=== PATIENT | male | born 1945 | race Caucasian/White ===

== ENCOUNTER 2021-12-08 13:53 | Inpatient (IN) | payer MEDICARE, OTHER ==
[~2021-12-08] VITALS: Ht 177.8 cm; Wt 59.0 kg
[2021-12-08 14:56] LABS: HEMOGLOBIN 7.2 gm/dl (14.0-17.5); RED BLOOD COUNT 2.48 M/UL (4.20-5.50)
[2021-12-08] MEDS ORDERED: PRAVASTATIN SOD40 MG PO (20:08)
[2021-12-08] MEDS ORDERED: DESYREL 50 MG T50 MG PO (20:09)
[2021-12-08] MEDS ORDERED: GLUCOTROL5 MG PO (20:10)
[2021-12-08] MEDS ORDERED: FLOMAX 0.4 MG0.4 MG PO (20:10)
[2021-12-08] MEDS ORDERED: AMLODIPINE BESYL5 MG PO (20:11)
[2021-12-08] MEDS ORDERED: NITROGLYCERIN0.4 MG SL (20:12)
[2021-12-09 03:13] LABS: HEMOGLOBIN 7.5 gm/dl (14.0-17.5); RED BLOOD COUNT 2.66 M/UL (4.20-5.50)
[2021-12-09 03:39] LABS: WHITE BLOOD COUNT 167.6 K/UL (4.5-11.0)
[2021-12-09] MEDS ORDERED: HYDROCODON-ACE1 EAC6 PO (20:11)
[2021-12-10 04:31] LABS: HEMOGLOBIN 8.4 gm/dl (14.0-17.5)
[2021-12-10 04:36] LABS: RED BLOOD COUNT 2.94 M/UL (4.20-5.50); WHITE BLOOD COUNT 140.2 K/UL (4.5-11.0)
[2021-12-11 03:26] LABS: HEMOGLOBIN 7.8 gm/dl (14.0-17.5)
[2021-12-11 03:40] LABS: RED BLOOD COUNT 2.6 M/UL (4.20-5.50); WHITE BLOOD COUNT 115.4 K/UL (4.5-11.0)
[2021-12-12 03:24] LABS: HEMOGLOBIN 7.4 gm/dl (14.0-17.5); RED BLOOD COUNT 2.53 M/UL (4.20-5.50)
[2021-12-12 03:36] LABS: WHITE BLOOD COUNT 101.5 K/UL (4.5-11.0)
[2021-12-12] MEDS ORDERED: METOPROLOL SUCC25 MG PO (18:00)
[2021-12-12] MEDS ORDERED: ISOSORBIDE MONO30 MG PO (18:00)
[2021-12-12] MEDS ORDERED: ASPIRIN EC81 MG PO (18:00)
[2021-12-13 12:46] LABS: WHITE BLOOD COUNT 172.3 K/UL (4.5-11.0)
[2021-12-14] MEDS ORDERED: ATORVASTATIN CA20 MG PO (17:42)
[2021-12-14] MEDS ORDERED: LOPRESSOR 25 MG25 MG PO (17:42)
== END 2021-12-12 18:25 | disposition left against medical advice (07) | DRG 840 ==
LOC: ER1 13:53 → M/S 17:15 → CDU 17:15 → M/S 20:01
PROVIDERS: Internal Medicine; Physician Assistant; Physician Assistant Medical; ADMIT Internal Medicine
PROC: 30233N1 Transfusion of Nonautologous Red Blood Cells into Peripheral Vein, Percutaneous Approach (ICD-10-PCS; principal; 2021-12-09)
PROC: B24BZZZ Ultrasonography of Heart with Aorta (ICD-10-PCS; 2021-12-09)
DX: C91.10 Chronic lymphocytic leukemia of B-cell type not having achieved remission (principal); I21.A1 Myocardial infarction type 2; N17.9 Acute kidney failure, unspecified; I13.0 Hypertensive heart and chronic kidney disease with heart failure and stage 1 through stage 4 chronic kidney disease, or unspecified chronic kidney disease; I50.32 Chronic diastolic (congestive) heart failure; D61.818 Other pancytopenia; E44.1 Mild protein-calorie malnutrition; Z68.1 Body mass index [BMI] 19.9 or less, adult; I42.9 Cardiomyopathy, unspecified; I08.1 Rheumatic disorders of both mitral and tricuspid valves; Z20.822 Contact with and (suspected) exposure to COVID-19; N40.0 Benign prostatic hyperplasia without lower urinary tract symptoms; N18.30 Chronic kidney disease, stage 3 unspecified; D63.1 Anemia in chronic kidney disease; E11.22 Type 2 diabetes mellitus with diabetic chronic kidney disease; D69.6 Thrombocytopenia, unspecified; E78.5 Hyperlipidemia, unspecified; Z90.49 Acquired absence of other specified parts of digestive tract; Z88.8 Allergy status to other drugs, medicaments and biological substances; Z83.3 Family history of diabetes mellitus; Z79.4 Long term (current) use of insulin
CPT/HCPCS: ECHO; 36415; 71045; 78452; 80048; 80053; 81001; 82550; 82553; 82570; 82962; 83010; 83540; 83550; 83615; 83735; 83874; 84133; 84156; 84300; 84439; 84443; 84484; 85025; 85027; 85045; 85610; 86850; 86900; 86901; 86920; 93005; 93017; 93306; 96372; 96374; 96376; 99285; A9502; G0378; J2270; J2785; J7050; P9040; U0002